=== PATIENT | female | born 1955 | race Caucasian/White ===

== ENCOUNTER 2025-01-29 08:00 | Day surgery (SDC) | payer MEDICARE, SELFPAY ==
[2025-01-24 14:48] VITALS: BMI 34.6
--- NOTE | 2025-01-29 09:25 | EXP.ANES.CKL ---
[facility] Disclaimer: The information contained in this section may have been updated after the patient was seen, as this information can be updated by other users. Medical History Macular degeneration High blood pressure Surgical History History of hysterectomy Family History Other Breast cancer Stroke Social History (Updated 01/29/25 @ 09:30 by Xiomraa Velez RN) Smoking Status: Never smoker alcohol intake: never substance use type: denies use current occupational status: retired Travel in the last 8 weeks?: None caffeine: Yes [facility] Anesthesia Checklist Patient Identification Patient Identification: Arm Band Structural Data Admitted From: Home Planned Operative Procedure/s: Colonoscopy Consent for Planned Operative Procedure(s) Verified: Yes Verified Documents: Surgical Consent and History and Physical NPO Status Verified Time NPO: 00:00 Additional verifications Anesthesia Reactions: No Airway Assessment Mallampati Score:: Class II C-Spine Mobility Assessed: Yes TMJ Mobility Assessed: Yes Dentition: Good Dentition Neurological Assessment Level of Consciousness: Awake, Alert and Appropriate Anesthesia Plan Anesthesia Risk discussed: Yes Anesthesia Plan: Verified ASA Class: II Anesthesia Type: MAC
[2025-01-29 09:31] VITALS: BP 108/51; PULSE 68; RESP 20; TEMP 36.6; O2SAT 98
--- NOTE | 2025-01-29 09:47 | EXP.HP ---
History of Present Illness *Admission Date: 01/29/25 *Reason for visit:: Screening *History of present illness: Mrs. Kohli is a 69-year-old female who is here for screening for colon cancer. Her last colonoscopy was October 2014 and she is on 10-year surveillance interval. The examination is deemed medically necessary for screening colonoscopy. The patient has been seen, interviewed and examined prior to the procedure by both myself and the anesthesia provider. [facility] Disclaimer: The information contained in this section may have been updated after the patient was seen, as this information can be updated by other users. Medical History Macular degeneration High blood pressure Surgical History History of hysterectomy Family History Other Breast cancer Stroke Social History (Updated 01/29/25 @ 09:43 by Edgar Galarza CRNA) Smoking Status: Never smoker alcohol intake: never substance use type: denies use current occupational status: retired Travel in the last 8 weeks?: None caffeine: Yes Have you lived/traveled outside [place] in past 30 days?: No Contact w/someone who lives/traveled outside US past 30 days?: No Exposure to someone with infectious disease in past 14 days?: No Do you have a fever (greater than 100.4 F or 38 C)?: No Have you tested positive for COVID-19?: No Exposed to someone with COVID-19 in past 14 days?: No Do you have a sore throat?: No Do you have a cough?: No Do you have any weakness?: No Do you have any diarrhea?: No Are you experiencing any unusual bleeding?: No Do you have any muscle aches/pain?: No Do you have any abdominal pain?: No Are you experiencing loss of taste or smell?: No Other Medical History Have you received the Pneumonia Vaccine: Yes Review of Systems Review of Systems Review of systems (narrative): Negative *Cardiovascular Comments: Negative *Gastrointestinal Comments: Negative *Genitourinary Comments: Negative *Musculoskeletal Comments: Negative *Neurologic Comments: Negative Meds Home Medications and Allergies Home Medications ?Medication ?Instructions ?Recorded ?Confirmed ?Type ergocalciferol (vitamin D2) 1,250 1,250 mcg PO WEEKLY 01/23/25 01/24/25 History mcg (50,000 unit) capsule estradiol 0.1 mg/24 hr semiweekly 1 patch transdermal .semiweekly 01/23/25 01/24/25 History transdermal patch lisinopril 10 mg tablet 10 mg PO DAILY 01/23/25 01/24/25 History loratadine 10 mg tablet (Claritin) 10 mg PO DAILY 01/23/25 01/24/25 History sodium,potassium,mag sulfates 17.5 See Rx Instructions PO .COMPLEX 01/23/25 01/24/25 Rx gram-3.13 gram-1.6 gram oral soln #354 mL (Suprep Bowel Prep Kit) vit C 250 mg-vit E 90 mg-zinc 40 1 tab PO BID 01/23/25 01/24/25 History mg-copper 1 [id number] capsule ([facility] AREDS-2) New Prescriptions to Start Prescriptions: Allergies Allergy/AdvReac Type Severity Reaction Status Date / Time No Known Allergies Allergy Verified 01/24/25 14:48 Exam Data for Last 24 hours Vital signs and Labs for Last 24 Hours: Temp Pulse Resp BP Pulse Ox O2 Del Method 97.8 F 68 20 108/51 L 98 Room Air 01/29/25 09:31 01/29/25 09:31 01/29/25 09:31 01/29/25 09:31 01/29/25 09:31 01/29/25 09:31 *Routine HEENT Exam Head: Present normocephalic Eye: Present EOMI and PERRL ENT: Present mucous membranes moist *Routine Neck Exam Neck: Present supple *Routine Respiratory Exam Respiratory: Present CTA bilaterally *Routine Cardiovascular Exam Cardiovascular: Present RRR *Routine Abdominal Exam Abdominal: Present soft and normoactive bowel sounds; Absent tenderness *Routine Rectal Exam Rectal:: deferred *Routine Genitalia Exam Genitalia:: deferred *Routine Extremities Exam Extremities: Absent cyanosis, clubbing or edema *Routine Skin Exam Skin: Present warm; Absent rash *Routine Neurological Exam Neurological: Present alert and oriented X3 Assessment and Plan *Assessment and plan (1) Screening for malignant neoplasm of colon: Status: Acute Category: Medical Code(s): Z12.11 - Encounter for screening for malignant neoplasm of colon Plan A/P: 1. Screening for colon cancer is the preprocedural diagnosis. The patient will be anesthetized/sedated using MAC sedation. The patient has been seen and examined. Cardiac and lung assessment prior to the examination is stable. Proceed with planned screening colonoscopy.
--- NOTE | 2025-01-29 09:56 | HMH.PROCNOTE ---
[facility] Procedure Note Date: 01/29/25 Time: 10:12 Procedure Note:: Colonoscopy Procedure Report: Colonoscopy with monopolar ablation/coagulation of internal hemorrhoids Endoscopist: Abdelrahman Khan II, MD Referring physician: [place]NET[place] [address] Date of Procedure: January 29, 2025 Equipment: Olympus 190 variable stiffness pediatric colonoscope Sedation: MAC sedation Indication: Mrs. Kohli is a 69-year-old female who is here for follow-up screening/surveillance colonoscopy. Her last colonoscopy was in October 2014 and was normal. She reports no abdominal pain, weight loss, change in her bowel habits or rectal bleeding. She will occasionally get spotting of blood from internal hemorrhoids and some hemorrhoid prolapse. Her maternal grandmother had colon cancer in her 70s. Her nephew has Crohn's disease. Procedure: Prior to the procedure, a history and physical exam was performed, and patient's medications and allergies were reviewed. The risks, benefits and alternatives of the sedation and procedure were discussed with the patient. All questions were answered and informed consent was obtained. The patient was brought to the procedure room. Patient identification and proposed procedure were verified by the physician and the nurse. The patient was placed in a left lateral decubitus position and the scope was passed under direct vision. Throughout the procedure, the patient's blood pressure, pulse, and oxygen saturations were monitored continuously. The colonoscopy was accomplished without difficulty. The patient tolerated the procedure well. Findings: On digital rectal examination there was normal rectal tone. There were no external hemorrhoids. The colonoscope was introduced through the anal canal to the rectum and advanced to the cecum. The ileocecal valve and appendiceal orifice were identified. The scope was advanced a short distance into the ileum which appeared grossly normal. The scope was then withdrawn into the colon. The cecum, ascending, transverse, descending, sigmoid and rectum were grossly normal. There were no mucosal abnormalities identified. Upon retroflexion within the rectum there were grade 2-3 internal hemorrhoids. 3 columns of hemorrhoids were ablated/coagulated using monopolar ablation to destruction. The preparation was excellent throughout with [place] Preparation Score of 9. The cecal time was 10 minutes. Impression: 1. Normal colonoscopy with intubation of the terminal ileum 2. Grade 2-3 internal hemorrhoids status post monopolar ablation/coagulation Plan: The patient will not require any further preventive/screening colonoscopy. I would encourage psyllium bulking fiber supplementation on a long-term daily maintenance basis.
[2025-01-29 10:15] VITALS: BP 125/66; PULSE 76; RESP 16; TEMP 36.3; O2SAT 92
[2025-01-29 10:25] VITALS: BP 111/64; PULSE 73; RESP 18; O2SAT 96
[2025-01-29 10:35] VITALS: BP 117/67; PULSE 70; RESP 16; O2SAT 96
[2025-01-29 10:45] VITALS: BP 119/60; PULSE 67; RESP 16; O2SAT 97
== END 2025-01-29 10:48 | disposition home or self-care (01) ==
PROVIDERS: PCP Nurse Practitioner; Visit Provider Internal Medicine Gastroenterology
PROC: 0DJD8ZZ Inspection of Lower Intestinal Tract, Via Natural or Artificial Opening Endoscopic (ICD-10-PCS; CPT 45378; principal; 2025-01-29 10:00)
DX: Z12.11 Encounter for screening for malignant neoplasm of colon (principal); K64.2 Third degree hemorrhoids; K64.1 Second degree hemorrhoids; I10 Essential (primary) hypertension; Z79.899 Other long term (current) drug therapy; Z80.0 Family history of malignant neoplasm of digestive organs
CPT/HCPCS: 45398; J2003; J2704